=== PATIENT | female | born 1955 | race Caucasian/White ===

== ENCOUNTER 2016-07-07 08:27 | Emergency (ER) | payer OTHER ==
[~2016-07-07] VITALS: Ht 152.4 cm; Wt 85.0 kg
[2016-07-07 08:28] VITALS: BP 168/78; PULSE 69; RESP 15; TEMP 98; O2SAT 100
[2016-07-07] MEDS ORDERED: PRIL20CA9 PO (08:53)
[2016-07-07] MEDS ORDERED: AMLO10TA2 PO (08:53)
[2016-07-07] MEDS ORDERED: LOSA50TA2 PO (08:53)
[2016-07-07] MEDS ORDERED: KETOROLAC TROMETHAMINE 60 MG/2 ML (IM) VIAL IM ONE (09:00)
[2016-07-07] MEDS ORDERED: NAPR500T PO (09:01)
[2016-07-07] MEDS ORDERED: CYCL1TAB29 PO (09:01)
--- NOTE | 2016-07-07 09:02 | PD ---
HPI Chief Complaint: Back/ Neck Pain or Injury Time Seen by Provider: 09:01 Travel History International Travel<30 days: No Contact w/Intl Traveler<30days: No Traveled to known affect area: No History of Present Illness HPI 61-year-old female with history of hypertension presents to the emergency department for evaluation of right mid back pain. Patient states that at work yesterday she lifted a box from a table and set it down on the lower table to the right and immediately felt a pull in her mid back. States that the pain is aggravated with movement of her right shoulder. Denies any alleviating factors. States that she applied ice and heat, has taken no medications so far. Denies any fever, chills, nausea, vomiting, numbness or tingling, weakness. Denies any previous injury or trauma to her back. No other complaints. PFSH Past Medical History Hx Anticoagulant Therapy: No Cardiovascular Problems: No Chemotherapy: No Cerebrovascular Accident: No Diabetes: No Hypertension: Yes Respiratory: No Tetanus Vaccination: > 5 Years ?: Not Past Surgical History Hysterectomy: No Social History Alcohol Use: No Tobacco Use: Yes Substance Use: No Allergies-Medications (Allergen,Severity, Reaction): Coded Allergies: No Known Allergies (Unverified , 07/07/16) Reported Meds & Prescriptions Reported Meds & Active Scripts Active Flexeril (Cyclobenzaprine HCl) 10 Mg Tab 10 Mg PO TID 5 Days Naproxen 500 Mg Tab 500 Mg PO BID 7 Days Reported Prilosec (Omeprazole) 20 Mg Cap 20 Mg PO DAILY Losartan-Hydrochlorothiazide 50-12.5 Mg Tab 1 Tab PO DAILY Amlodipine (Amlodipine Besylate) 10 Mg Tab 10 Mg PO DAILY Review of Systems Except as stated in HPI: all other systems reviewed are Neg Physical Exam Narrative GENERAL: Well-nourished and well-developed pleasant female patient in no acute distress who is nontoxic appearing. SKIN: Warm and dry. HEAD: Normocephalic and atraumatic. EYES: No injection, drainage, or hyphema noted. PERRLA. EOMI. ENT: No nasal drainage noted. Oropharynx is clear. NECK: Supple and the trachea is midline. CARDIOVASCULAR: Regular rate and rhythm. RESPIRATORY: Breath sounds are equal bilaterally with no accessory muscle use, wheezing, rhonchi, or crackles. MUSCULOSKELETAL: No obvious deformities, swelling, cyanosis, or ecchymosis is present throughout the upper and lower extremities. Patient has full range of motion without any signs of neurovascular compromise. Strength 5/5 upper and lower extremities equal bilaterally. BACK: Tenderness to palpation of right thoracic paraspinal muscles. No obvious deformities, midline bony point tenderness, or crepitus noted throughout the thoracic and lumbar vertebrae. NEUROLOGICAL: Awake, alert, and oriented. Normal speech and gait. Cranial nerves are grossly intact. Data Data Last Documented VS Vital Signs Date Time Temp Pulse Resp B/P Pulse Ox O2 Delivery O2 Flow Rate FiO2 07/07/16 08:28 98.0 69 15 168/78 100 Orders Ketorolac Inj (Toradol Inj) (07/07/16 09:00) MDM Medical Decision Making Medical Screen Exam Complete: Yes Emergency Medical Condition: Yes Differential Diagnosis Muscle strain versus muscle spasm versus discogenic pain Narrative Course 61-year-old female presents to the emergency department for evaluation of right thoracic paraspinal muscle strain. Patient is afebrile, vital signs are stable. No midline or bony point tenderness, no traumatic injury. Therefore I do not feel that any imaging is indicated at this time. Patient will be treated with Toradol 60 mg IM here in the emergency department. We'll discharge her with naproxen and Flexeril. Discussed supportive care and when to return to the emergency Department. Advised follow-up with her PCP. Patient verbalizes understanding and agreement with treatment plan. Diagnosis Primary Impression: Acute back pain Qualified Code: M54.6 - Acute right-sided thoracic back pain Referrals: Primary Care Physician Patient Instructions: General Instructions Additional Instructions: Apply ice or heat to help alleviate symptoms. Take medications as prescribed with food and a full glass of water. Do not take Flexeril with alcohol or while driving. Follow-up with your Primary Care Physician. Return to the ED for any acute worsening of symptoms. Med/Other Pt SpecificInfo: Prescription(s) given Scripts Cyclobenzaprine (Flexeril)10 Mg Tab10 Mg PO TID 5 Days Ref 0 Prov:Krunal Hall MD 07/07/16 Naproxen 500 Mg Ram732 Mg PO BID 7 Days Ref 0 Prov:Krunal Hall MD 07/07/16 Disposition: 01 DISCHARGE HOME Condition: Stable Nancy Nevarez Jul 07, 2016 09:01
== END 2016-07-07 09:45 | disposition home or self-care (01) ==
LOC: NEPB 08:27
DX: M54.9 Dorsalgia, unspecified (principal); I10 Essential (primary) hypertension; M25.511 Pain in right shoulder; Z72.0 Tobacco use
CPT/HCPCS: 96372; 99283; J1885

== ENCOUNTER 2016-11-13 17:42 | Emergency (ER) | payer BC ==
[~2016-11-13] VITALS: Ht 152.4 cm; Wt 88.0 kg
[~2016-11-13 17:42] MED LIST: AMLO10TA2 PO; CYCL1TAB29 PO; LOSA50TA2 PO; NAPR500T PO; PRIL20CA9 PO
[2016-11-13 17:44] VITALS: BP 172/82; PULSE 78; RESP 16; TEMP 97.6; O2SAT 98
[2016-11-13 18:04] VITALS: BP 141/68; PULSE 71; RESP 18; O2SAT 95
[2016-11-13] MEDS ORDERED: ACETAMINOPHEN/HYDROcodone 325 MG/5 MG TAB PO ONE (18:30)
[2016-11-13 18:35] VITALS: O2SAT 99
[2016-11-13 18:43] LABS: AUTOMATED NEUTROPHIL # 5.2 TH/MM3 (1.8-7.7); BASOPHIL # 0.1 TH/MM3 (0-0.2); BASOPHIL % 0.7 % (0.0-2.0); EOSINOPHIL # 0.1 TH/MM3 (0-0.4); EOSINOPHIL % 1.7 % (0.0-4.0); HEMATOCRIT 44.6 % (35.0-46.0); HEMO FLAGS DIFF FINAL; MEAN CELL VOLUME 82.7 FL (80.0-100.0); MEAN CORPUSCULAR HEMOGLOBIN 28.3 PG (27.0-34.0); MEAN CORPUSCULAR HGB CONC 34.1 % (32.0-36.0); MONO % 5.3 % (0.0-8.0); NEUT % 58.3 % (16.0-70.0); PLATELET COUNT 241 TH/MM3 (150-450); RED BLOOD COUNT 5.39 MIL/MM3 (4.00-5.30); RED CELL DISTRIBUTION WIDTH 14.5 % (11.6-17.2); WHITE BLOOD COUNT 8.9 TH/MM3 (4.0-11.0)
--- NOTE | 2016-11-13 18:50 | RADRPT ---
EXAM DATE/TIME: 11/13/2016 18:35 [facility] COMPARISON: No previous studies available for comparison. INDICATIONS : Short of breath, bilateral lower extremity pain and swelling. MEDICAL HISTORY : Chronic obstructive pulmonary disease. SURGICAL HISTORY : None. ENCOUNTER: Initial ACUITY: 3 days PAIN SCORE: 0/10 LOCATION: Bilateral chest FINDINGS: A single view of the chest demonstrates the lungs to be symmetrically aerated without evidence of mas s, infiltrate or effusion. The cardiomediastinal contours are unremarkable. Osseous structures are intact. CONCLUSION: No acute disease. There is no evidence of pulmonary edema. Abdirahman Desir MD on November 13, 2016 at 18:48 Board Certified Radiologist. This report was verified electronically.
--- NOTE | 2016-11-13 19:08 | RADRPT ---
EXAM DATE/TIME: 11/13/2016 18:40 [facility] COMPARISON: No previous studies available for comparison. INDICATIONS : Bilateral leg swelling and pain. MEDICAL HISTORY : Hypertension. Chronic obstructive pulmonary disease. Tobacco use. SURGICAL HISTORY : None. ENCOUNTER: Initial ACUITY: 3 days PAIN SCORE: 5/10 LOCATION: Bilateral leg. TECHNIQUE: Venous ultrasound of the left and right leg was performed from the inguinal ligament to the proximal calf. Real-time, color Doppler and spectral tracing, compression and augmentation techniques were us ed. FINDINGS: RIGHT LEG: There is normal compressibility of the deep venous system from the inguinal region to the proximal ca lf. No echogenic clot is seen in the lumen of the common femoral, femoral, popliteal, and posterior tibial veins. There is a normal response of the venous system to proximal and distal augmentation an d respiration. LEFT LEG: There is normal compressibility of the deep venous system from the inguinal region to the proximal ca lf. No echogenic clot is seen in the lumen of the common femoral, femoral, popliteal, and posterior tibial veins. There is a normal response of the venous system to proximal and distal augmentation an d respiration. CONCLUSION: Negative exam with no evidence of deep venous thrombosis. Abdirahman Desir MD on November 13, 2016 at 19:06 Board Certified Radiologist. This report was verified electronically.
[2016-11-13 19:23] LABS: ANION GAP 9 MEQ/L (5-15); BICARBONATE 31.3 MEQ/L (21.0-32.0); BLOOD UREA NITROGEN 14 MG/DL (7-18); CHLORIDE 99 MEQ/L (98-107); GLOMERULAR FILTRATION RATE 43 ML/MIN (>89); MAGNESIUM 2.1 MG/DL (1.5-2.5); POTASSIUM 3.4 MEQ/L (3.5-5.1); SODIUM (NA) 139 MEQ/L (136-145)
--- NOTE | 2016-11-13 19:24 | PD ---
Data Data Last Documented VS Vital Signs Date Time Temp Pulse Resp B/P Pulse Ox O2 Delivery O2 Flow Rate FiO2 11/13/16 18:35 99 11/13/16 18:04 71 18 141/68 Room Air 11/13/16 17:44 97.6 Orders Electrocardiogram (11/13/16 18:20) Complete Blood Count With Diff (11/13/16 18:20) Basic Metabolic Panel (Bmp) (11/13/16 18:20) Ckmb (Isoenzyme) Profile (11/13/16 18:20) Troponin I (11/13/16 18:20) B-Type Natriuretic Peptide (11/13/16 18:20) Magnesium (Mg) (11/13/16 18:20) Chest, Single Ap (11/13/16 18:20) Iv Access Insert/Monitor (11/13/16 18:20) Ecg Monitoring (11/13/16 18:20) Oximetry (11/13/16 18:20) Us Leg Venous Doppler Bilat (11/13/16 18:20) Acetamin-Hydrocod 325-5 Mg ([place] 5-325 (11/13/16 18:30) Labs Laboratory Tests Test 11/13/16 18:30 White Blood Count 8.9 TH/MM3 Red Blood Count 5.39 MIL/MM3 Hemoglobin 15.2 GM/DL Hematocrit 44.6 % Mean Corpuscular Volume 82.7 FL Mean Corpuscular Hemoglobin 28.3 PG Mean Corpuscular Hemoglobin 34.1 % Concent Red Cell Distribution Width 14.5 % Platelet Count 241 TH/MM3 Mean Platelet Volume 8.7 FL Neutrophils (%) (Auto) 58.3 % Lymphocytes (%) (Auto) 34.0 % Monocytes (%) (Auto) 5.3 % Eosinophils (%) (Auto) 1.7 % Basophils (%) (Auto) 0.7 % Neutrophils # (Auto) 5.2 TH/MM3 Lymphocytes # (Auto) 3.0 TH/MM3 Monocytes # (Auto) 0.5 TH/MM3 Eosinophils # (Auto) 0.1 TH/MM3 Basophils # (Auto) 0.1 TH/MM3 CBC Comment DIFF FINAL Differential Comment [facility] Supervised Visit with OPAL: Yes Narrative Course The history, exam, and medical decision-making in the associated mid-level provider note were completed with my assistance. I reviewed and agree with the findings presented. I attest that I had a [id number] encounter with the patient on the same day, and personally performed and documented my assessment and findings in the medical record. *My assessment and Findings: 61-year-old woman, lower [place] edema, left greater than right, sent from urgent care to brought DVT. On her feet for work. She looks otherwise well. We'll check ultrasound, labs, reassess. Discharge if negative. Gal Pederson MD November 13, 2016 19:24
[2016-11-13 19:25] VITALS: BP 124/61; PULSE 64; RESP 20; O2SAT 92
[2016-11-13 19:30] LABS: CREATINE KINASE 94 U/L (26-192)
--- NOTE | 2016-11-13 19:32 | PD ---
HPI Chief Complaint: Edema Time Seen by Provider: 19:27 Travel History International Travel<30 days: No Contact w/Intl Traveler<30days: No Traveled to known affect area: No History of Present Illness HPI 61-year-old female that presents to the ED for evaluation of bilateral lower leg edema. Per patient she's had this for quite sometime but for the past 3 days she's been noticing that is becoming more painful and more swollen. Per patient mainly on the left leg. She does have leg edema to the right leg but not as painful. Per patient she is on her feet a lot. 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 Per patient she attributes this to dad. Per patient yesterday when he was starting to give her discomfort no she did was laid down and raise her legs and this alone seemed to help with the pain. Per patient today will she was working she noted that as the day progressed she got more swelling and she became more painful as patient in the left leg. Per patient he feels like a sharp pain. She denies any recent travel or history of control use. No history of blood clots in herself but on the family. She denies any abdominal pain. Per patient she does state that she has had some chest discomfort on and off usually with exertion and some shortness of breath with exertion which he attributes this to smoking for a long long time. She has an allergy to codeine. She apparently went to an urgent care today and she was told to come here to get evaluated for DVT. PFSH Past Medical History Hx Anticoagulant Therapy: No Cardiovascular Problems: Yes (HTN) Chemotherapy: No Cerebrovascular Accident: No Diabetes: No Diminished Hearing: No Hypertension: Yes Respiratory: Yes (COPD) Tetanus Vaccination: < 5 Years Influenza Vaccination: No ?: Not Past Surgical History Hysterectomy: No Social History Alcohol Use: No Tobacco Use: Yes Substance Use: No Allergies-Medications (Allergen,Severity, Reaction): Coded Allergies: Codeine (Verified Allergy, Intermediate, NAUSEA, 11/13/16) Reported Meds & Prescriptions Reported Meds & Active Scripts Active Reported Prilosec (Omeprazole) 20 Mg Cap 20 Mg PO DAILY Losartan-Hydrochlorothiazide 50-12.5 Mg Tab 1 Tab PO DAILY Amlodipine (Amlodipine Besylate) 10 Mg Tab 10 Mg PO DAILY Review of Systems Except as stated in HPI: all other systems reviewed are Neg Physical Exam Narrative GENERAL: SKIN: Warm and dry. HEAD: Atraumatic. Normocephalic. EYES: Pupils equal and round. No scleral icterus. No injection or drainage. ENT: No nasal bleeding or discharge. Mucous membranes pink and moist. Tongue is midline. No uvula deviation. NECK: Trachea midline. No JVD. CARDIOVASCULAR: Regular rate and rhythm. No murmurs, S3, S4. RESPIRATORY: No accessory muscle use. Clear to auscultation. Breath sounds equal bilaterally. GASTROINTESTINAL: Abdomen soft, non-tender, nondistended. Hepatic and splenic margins not palpable. MUSCULOSKELETAL: Extremities without clubbing, cyanosis, or edema. No obvious deformities. Full range of motion of the upper and lower extremities bilaterally. 2+ pulses bilaterally. Patient has 1+ pitting edema on the lower extremities bilaterally. Pain is reproducible with touch in the medial aspect of the left leg. Pupils pulses bilaterally. Neurovascular intact. Full range of motion of the legs. NEUROLOGICAL: Awake and alert. No obvious cranial nerve deficits. Motor grossly within normal limits. Five out of 5 muscle strength in the arms and legs. Normal speech. PSYCHIATRIC: Appropriate mood and affect; insight and judgment normal. Data Data Last Documented VS Vital Signs Date Time Temp Pulse Resp B/P Pulse Ox O2 Delivery O2 Flow Rate FiO2 11/13/16 19:25 64 20 124/61 92 Room Air 11/13/16 17:44 97.6 Orders Electrocardiogram (11/13/16 18:20) Complete Blood Count With Diff (11/13/16 18:20) Basic Metabolic Panel (Bmp) (11/13/16 18:20) Ckmb (Isoenzyme) Profile (11/13/16 18:20) Troponin I (11/13/16 18:20) B-Type Natriuretic Peptide (11/13/16 18:20) Magnesium (Mg) (11/13/16 18:20) Chest, Single Ap (11/13/16 18:20) Iv Access Insert/Monitor (11/13/16 18:20) Ecg Monitoring (11/13/16 18:20) Oximetry (11/13/16 18:20) Us Leg Venous Doppler Bilat (11/13/16 18:20) Acetamin-Hydrocod 325-5 Mg ([place] 5-325 (11/13/16 18:30) Ketorolac Inj (Toradol Inj) (11/13/16 19:45) Morphine Inj (Morphine Inj) (11/13/16 19:45) Ondansetron Inj (Zofran Inj) (11/13/16 19:45) Labs Laboratory Tests Test 11/13/16 18:30 White Blood Count 8.9 TH/MM3 Red Blood Count 5.39 MIL/MM3 Hemoglobin 15.2 GM/DL Hematocrit 44.6 % Mean Corpuscular Volume 82.7 FL Mean Corpuscular Hemoglobin 28.3 PG Mean Corpuscular Hemoglobin 34.1 % Concent Red Cell Distribution Width 14.5 % Platelet Count 241 TH/MM3 Mean Platelet Volume 8.7 FL Neutrophils (%) (Auto) 58.3 % Lymphocytes (%) (Auto) 34.0 % Monocytes (%) (Auto) 5.3 % Eosinophils (%) (Auto) 1.7 % Basophils (%) (Auto) 0.7 % Neutrophils # (Auto) 5.2 TH/MM3 Lymphocytes # (Auto) 3.0 TH/MM3 Monocytes # (Auto) 0.5 TH/MM3 Eosinophils # (Auto) 0.1 TH/MM3 Basophils # (Auto) 0.1 TH/MM3 CBC Comment DIFF FINAL Differential Comment Sodium Level 139 MEQ/L Potassium Level 3.4 MEQ/L Chloride Level 99 MEQ/L Carbon Dioxide Level 31.3 MEQ/L Anion Gap 9 MEQ/L Blood Urea Nitrogen 14 MG/DL Creatinine 1.26 MG/DL Estimat Glomerular Filtration 43 ML/MIN Rate Random Glucose 114 MG/DL Calcium Level 8.9 MG/DL Magnesium Level 2.1 MG/DL Total Creatine Kinase 94 U/L Troponin I LESS THAN 0.02 NG/ML B-Type Natriuretic Peptide 16 PG/ML MDM Medical Decision Making Medical Screen Exam Complete: Yes Emergency Medical Condition: Yes Medical Record Reviewed: Yes Interpretation(s) Last Impressions Lower Extremity Ultrasound 11/13/161819 Signed Impressions: Service Date/Time: Sunday, November 13, 2016 18:40 - CONCLUSION: Negative exam with no evidence of deep venous thrombosis. Abdirahman Desir MD Chest X-Ray 11/13/161819 Signed Impressions: Service Date/Time: Sunday, November 13, 2016 18:35 - CONCLUSION: No acute disease. There is no evidence of pulmonary edema. Abdirahman Desir MD CBC Diagram 11/13/16 18:30 BNP WNL troponin negative BMP Diagram 11/13/16 18:30 Differential Diagnosis DVT versus dependent edema versus CHF versus muscle skeletal pain versus normal exam Narrative Course 61-year-old female that presents to the ED for evaluation of lower leg swelling and pain. Patient was properly examined and was found to have signs and symptoms very consistent what appears to be leg edema. Recommendation is for labs and imaging. Labs and imaging were ordered. My attending evaluated the patient and agrees with this plan. Labs and imaging here were essentially unremarkable. Patient feels improved. Patient was reassured. At this time I believe the likely patient has a thin edema secondary to vein insufficiency. Patient works on her feet all day. Patient does not exercise. Patient was told that she needs to use compression stockings at work. Elevate her leg when she gets home. She will be given prescription for pain medication to use only if needed. Told to take Motrin or Tylenol. See ED worsening symptoms. Discontinue smoking. Diagnosis Primary Impression: Dependent edema Patient Instructions: General Instructions Additional Instructions: Take medication as prescribed only if needed for pain. He can also take Tylenol or Motrin for pain as needed. Use compression stockings every day. Walk every day. Elevate your feet when you are at home. They've possible considered discontinuing smoking. See ED if any worsening symptoms develop. Follow with primary care doctor. Med/Other Pt SpecificInfo: Prescription(s) given Scripts Tramadol 50 Mg Tab50 Mg PO Q6H PRN (PAIN) #15 TAB Ref 0 Prov:Claudine Hartmann MD 11/13/16 Disposition: 01 DISCHARGE HOME Condition: Stable Caleb Dos Santos November 13, 2016 19:32
[2016-11-13] MEDS ORDERED: KETOROLAC TROMETHAMINE 30 MG/ML (IVP) VIAL IV PUSH ONE (19:45)
[2016-11-13] MEDS ORDERED: ONDANSETRON HCL 4 MG/2 ML VIAL IV PUSH ONE (19:45)
[2016-11-13] MEDS ORDERED: MORPHINE SULFATE 4 MG/ML INJ IV PUSH ONE (19:45)
[2016-11-13] MEDS ORDERED: TRAM50TA PO (20:52)
[2016-11-13 21:47] VITALS: BP 128/57
--- NOTE | 2016-11-14 19:41 | EKG ---
Date Performed: 11/13/2016 Time Performed: 18:32:54 PTAGE: 61 years EKG: Sinus rhythm NONSPECIFIC T-WAVE ABNORMALITY BORDERLINE ECG NO PREVIOUS TRACING DOCTOR: Julián Marmolejo Interpretating Date/Time 11/14/2016 19:40:23
== END 2016-11-13 21:50 | disposition home or self-care (01) ==
LOC: NEPE 17:42
DX: R60.0 Localized edema (principal); I10 Essential (primary) hypertension; J44.9 Chronic obstructive pulmonary disease, unspecified
CPT/HCPCS: 71010; 80048; 82550; 83735; 83880; 84484; 85025; 93005; 93970; 96374; 96375; 99285; J1885; J2270; J2405